=== PATIENT | male | born 1965 | race Two or more races ===

== ENCOUNTER 2024-04-26 15:59 | Emergency (ER) | payer SELFPAY ==
[~2024-04-26] VITALS: Ht 162.6 cm; Wt 77.3 kg
[2024-04-26 16:55] VITALS: BP 138/70; PULSE 78; RESP 18; TEMP 98.2; O2SAT 98
== END 2024-04-26 18:01 | disposition home or self-care (01) ==
LOC: ER 15:59 → EDBD 15:59 → ER 18:01
DX: S16.1XXA Strain of muscle, fascia and tendon at neck level, initial encounter (principal); S00.33XA Contusion of nose, initial encounter; V43.52XA Car driver injured in collision with other type car in traffic accident, initial encounter; Y93.89 Activity, other specified; Y92.89 Other specified places as the place of occurrence of the external cause; Y99.8 Other external cause status
CPT/HCPCS: 70160; 72040